=== PATIENT | male | born 1975 | race Caucasian/White ===

== ENCOUNTER 2022-06-18 12:02 | Emergency (ER) | payer OTHER, SELFPAY ==
[2022-06-18 12:10] VITALS: BP 129/71; PULSE 80; RESP 20; TEMP 37.2; O2SAT 97
--- NOTE | 2022-06-18 12:19 | ED.DIZZY ---
HPI - Dizziness General Chief Complaint: Dizziness Stated Complaint: Dizziness Time Seen by Provider: 06/18/22 12:19 Source: patient and RN notes reviewed Mode of arrival: ambulatory Limitations: no limitations History of Present Illness HPI Narrative: 46-year-old male presented for complaints of dizziness and double vision, onset this morning at 0830 while at work. He sat down but the symptoms worsened and have persisted. States he feels like he might pass out, denies room spinning sensation. Endorses [place], headache, drowsiness, and pain across the top of his collarbone area. He denies palpitations, chest pain, shortness of breath, nausea or vomiting, numbness, tingling or weakness of extremities. 3 weeks ago he had a left knee ligament repair. Endorses 2 years ago carotid ultrasound showed 40% stenosis bilaterally. History of hypertension and reports med compliance. Also reports 20% vision in the left eye since 2016 when he had a retinal tear and has not had it repaired. Smokes 1PPD. Related Data Home Medications Medication Instructions Recorded Confirmed amlodipine 5 mg tablet 5 mg PO DAILY 06/18/22 06/18/22 aspirin 81 mg tablet,delayed 81 mg PO DAILY 06/18/22 06/18/22 release (Adult Low Dose Aspirin) lovastatin 20 mg tablet 20 mg PO DAILY 06/18/22 06/18/22 pregabalin 25 mg capsule 150 mg PO DAILY 06/18/22 06/18/22 Allergies Allergy/AdvReac Type Severity Reaction Status Date / Time No Known Allergies Allergy Verified 06/18/22 12:20 Review of Systems Review of Systems: CONSTITUTIONAL: Denies body aches, fever, chills, or sweats. EYES: reports visual changes, denies redness, or discharge. ENT: Denies rhinorrhea, congestion, sore throat, or otalgia. CARDIOVASCULAR: Denies chest pain, palpitations, or edema. RESPIRATORY: Denies cough or dyspnea. GASTROINTESTINAL: Denies abdominal pain, nausea, vomiting, or diarrhea. SKIN: Denies rash, itching, or wounds. MUSCULOSKELETAL: Denies back pain, joint pain, or myalgia. NEUROLOGIC: Endorses headache, dizziness denies numbness, tingling, or weakness All systems reviewed & are unremarkable except as noted in HPI and below PMFSH Comments At time of signature, I have reviewed and agree with nursing past medical, surgical, social and family history unless otherwise noted. Please see nursing chart for further information. There is no relevant family history pertinent to the presenting complaint Exam Narrative: GENERAL: Well-appearing, appears older than stated age HEAD: Normocephalic, atraumatic. EYES: PERRLA, EOMI. ENT: Mucous membranes pink and moist. Multiple dental caries. No rhinorrhea. Right TM normal Left TM excess cerumen. NECK: Normal AROM. CHEST: Clear to auscultation. HEART: Normal rate and irregular rhythm. No murmur appreciated. Normal peripheral pulses. ABDOMEN: Soft, nontender, nondistended, normal active bowel sounds. EXTREMITIES: Normal range of motion. No edema. SKIN: Warm, dry, no rash. Capillary refill normal. NEURO: No focal deficits. Alert and oriented x3. EOMs intact without nystagmus. Finger to nose intact bilaterally. No facial droop/asymmetry noted bilaterally. Grimace intact. Intact sensation in face. Hearing intact bilaterally. Shoulder shrug intact. Strength 5/5 bilateral upper extremities. Ambulatory exam with a normal based, steady gait. Course Course Emergency Course: Patient is aware of diagnosis, understands and agrees to treatment plan. Anticipatory guidance given. Portions of this record may have been created with voice recognition software Level of Care: Express Care Visit Vital Signs Vital signs: Vital Signs Temperature 99.0 F 06/18/22 12:10 Pulse Rate 80 06/18/22 12:10 Respiratory Rate 20 06/18/22 12:10 Blood Pressure 129/71 06/18/22 12:10 Pulse Oximetry 97 06/18/22 12:10 Oxygen Delivery Room Air 06/18/22 12:10 Temperature 99.0 F 06/18/22 12:22 Pulse Rate 80 06/18/22 12:22 Res
[2022-06-18 12:22] VITALS: BP 129/71; PULSE 80; RESP 20; TEMP 37.2; O2SAT 97
--- NOTE | 2022-06-18 12:42 | ECG_ITS ---
Measurements Intervals [place] Rate: 67 P: 98 MD: 167 QRS: 101 QRSD: 95 T: 57 QT: 378 QTc: 401 Interpretive Statements SINUS RHYTHM WITH MARKED SINUS ARRHYTHMIA ARM LEADS REVERSED ATRIAL PREMATURE COMPLEXES BASELINE ARTIFACT- I, II BORDERLINE ECG NO PREVIOUS ECG AVAILABLE FOR COMPARISON Electronically Signed On 06-18-2022 14:22:22 CDT by Jaime Choudhary D.O.
== END 2022-06-18 13:04 | disposition short-term general hospital (02) ==
PROVIDERS: Emergency Provider Nurse Practitioner Family
DX: R42 Dizziness and giddiness (principal); I25.10 Atherosclerotic heart disease of native coronary artery without angina pectoris; E78.00 Pure hypercholesterolemia, unspecified; I10 Essential (primary) hypertension; J45.909 Unspecified asthma, uncomplicated; Z79.82 Long term (current) use of aspirin
CPT/HCPCS: 93005; 99215; G0463